=== PATIENT | female | born 1945 | race Caucasian/White ===

== ENCOUNTER → 2017-11-07 | Day surgery (SDC) | payer MEDICARE ==
[~2017-11-07] MED LIST: BUPIVACAINE/EPINEPHRINE 0.5% PF 30 ML VIAL ONE; KETOROLAC TROMETHAMINE 30 MG/ML (IVP) VIAL IV PUSH ONE; LACTATED RINGER'S 1000 ML INJ 1,000 ML ONE; LIDOCAINE 1%/EPINEPHrine 1:100,000 SOLN 30 ML VIAL ONE; MIDAZOLAM HCL 2 MG/2 ML VIAL ONE; ONDANSETRON HCL 4 MG/2 ML VIAL IV PUSH ONE; PROPOFOL 500 MG/50 ML BTL IV ONE; SODIUM CHLORIDE 0.9% INJ 10 ML ONE; ceFAZolin INJ 1,000 MG VIAL ONE
--- NOTE | 2017-11-08 11:49 | MP ---
cc: Abraham Chaudhari MD DATE OF OPERATION: 11/07/2017 DATE OF PROCEDURE: 11/07/2017. PREOPERATIVE DIAGNOSES: 1. Right breast cancer, locally advanced. 2. Need for permanent intravenous access, chemotherapy planning. POSTOPERATIVE DIAGNOSES: 1. Right breast cancer, locally advanced. 2. Need for permanent intravenous access, chemotherapy planning. PROCEDURE PERFORMED: Left subclavian Port-A-Cath placement under direct fluoroscopy. SURGEON: Abraham Chaudhari MD COMPRESSOR STATION OPERATOR: None. ANESTHESIA: MAC. IV FLUIDS: See anesthesia sheet. ESTIMATED BLOOD LOSS: 5 mL. DRAINS: None. COMPLICATIONS: None. WOUND CLASSIFICATION: Clean. INDICATIONS FOR PROCEDURE: The patient is a 71-year-old female who presents with diagnosis, biopsy-proven right breast cancer seen locally advanced with positive lymphadenopathy and advanced invasiveness. The patient needs to undergo neoadjuvant chemotherapy. Therefore, decision was for Port-A-Cath placement. DETAILS OF PROCEDURE: The patient was taken to the operating suite, placed in supine position. She was prepped and draped in the usual sterile fashion after induction of MAC anesthesia. A brief timeout was done stating the correct patient, procedure, surgical site and we were all in agreement with this. Attention was first directed to the left clavicular area. Landmarks were palpated. The sternal notch was identified. The Halsted ligament was also identified and palpated. Local anesthetic injected 1/3 the distance infraclavicular. The introducer large gauged needle was obtained and aspirated until it obtained the dark blood of the left subclavian vein. This was successful in one attempt. The wire was then introduced and advanced through the needle. The needle was removed and the wire remained in place. Fluoroscopy was used for confirmation of subclavian vein SVC placement. The local anesthetic was injected where the port pocket was to be. A 15 blade was used to do a transverse incision and further dissection with electro-Bovie cautery and finger interdigitation to make appropriate port pocket. The subcutaneous tunneler was used to tunnel the catheter through the skin. Next, the sheath dilator was used and advanced over the wire and introduced into the vein. The sheath and contents of the wire were removed. The Port-A-Cath catheter was then advanced through the dilator sheath, down the subclavian into the SVC. Again, fluoroscopy was used for confirmation of placement. The wire was then drawn back to approximately the 18 cm point. This is cut and then the Port-A-Cath along with the cuff was used and secured in place. The Port-A-Cath had been pre-flushed. The Port-A-Cath was then secured to the chest wall using 3-0 Prolene sutures. Chaparro needle was used with saline, aspirated freely. Then heparinized saline 2.5 mL was instilled. The port pocket was then closed with 3-0 Vicryl and 4-0 Monocryl subcuticular suture. Sterile dressing was then placed. Confirmation fluoroscopy was done showing appropriate location and adequate placement. A chest x-ray is pending for PACU. The patient tolerated the procedure well. There was no intraoperative complication. All lap and instrument counts were correct at the end of procedure and the patient was taken stable to PACU. FINDINGS: 1. Good flush, good return of the Port-A-Cath. 2. Pathology: No specimen sent. MD RUPESH Cosby/VALARIE , 11:21 AM , 11:48 AM
== END | disposition home or self-care (01) ==
LOC: ESDC 09:39
PROVIDERS: ATTEND Surgery
DX: C50.911 Malignant neoplasm of unspecified site of right female breast (principal)
CPT/HCPCS: 00532; 36561; 76000; 77001; C1788; J0690; J1885; J2250; J2405; J3010; J7120

== ENCOUNTER 2017-12-22 06:01 | Day surgery (SDC) | payer MEDICARE ==
[~2017-12-22] VITALS: Ht 152.4 cm; Wt 75.0 kg
[2017-12-22] MEDS ORDERED: SITA1TAB2 PO (06:57)
[2017-12-22] MEDS ORDERED: HYOS1TAB9 PO (06:57)
[2017-12-22] MEDS ORDERED: OMEP10CA PO (06:57)
[2017-12-22] MEDS ORDERED: GLIM4TAB PO (06:57)
[2017-12-22] MEDS ORDERED: LISI40TA PO (06:57)
[2017-12-22] MEDS ORDERED: METF500T PO (06:57)
[2017-12-22 07:08] VITALS: BP 148/72; PULSE 94; RESP 20; TEMP 97.8; O2SAT 98
[2017-12-22] MEDS ORDERED: SODIUM CHLORIDE 0.9% 1000 ML IV SCH (07:30)
[2017-12-22 07:54] LABS: AUTOMATED NEUTROPHIL # 12.3 TH/MM3 (1.8-7.7); BASOPHIL % 0.3 % (0.0-2.0); EOSINOPHIL % 0.2 % (0.0-4.0); HEMOGLOBIN 10.5 GM/DL (11.6-15.3); LYMPH % 8.2 % (9.0-44.0); LYMPHOCYTE # 1.2 TH/MM3 (1.0-4.8); MEAN CELL VOLUME 82.7 FL (80.0-100.0); MEAN CORPUSCULAR HEMOGLOBIN 27.2 PG (27.0-34.0); MEAN CORPUSCULAR HGB CONC 32.8 % (32.0-36.0); MONO % 6.8 % (0.0-8.0); NEUT % 84.5 % (16.0-70.0); PLATELET COUNT 234 TH/MM3 (150-450); RED BLOOD COUNT 3.87 MIL/MM3 (4.00-5.30); RED CELL DISTRIBUTION WIDTH 15.8 % (11.6-17.2); WHITE BLOOD COUNT 14.6 TH/MM3 (4.0-11.0)
[2017-12-22 08:03] LABS: INTERNATIONAL NORMALIZED RATIO 1.1 RATIO; PROTHROMBIN TIME - PATIENT 10.7 SEC (9.8-11.6)
[2017-12-22 08:39] LABS: BANDS 12 % (0-6); BASOPHILS 1 % (0-2); LYMPHOCYTES 11 % (9-44); METAMYELOCYTES 2 % (0-1); MONOCYTES 7 % (0-8); MYELOCYTES 3 % (0-0); NEUTROPHIL # MANUAL DIFF 11.8 TH/MM3 (1.8-7.7); POLYS (SEG NEUTROPHILS) 64 % (16-70)
[2017-12-22 08:40] LABS: POLYCHROMASIA 2.6 % (0.0-1.9)
[2017-12-22 08:41] LABS: TEARDROP RBCS 1+ (NORMAL); TOXIC GRANULATION 1+ (NORMAL)
[2017-12-22 09:00] VITALS: BP 135/73; PULSE 85; RESP 18; O2SAT 92
[2017-12-22] MEDS ORDERED: IOHEXOL 350 MG/ML 50 ML BTL (for RAD DIAG) IVCONTRAST ONE (09:00)
--- NOTE | 2017-12-22 09:12 | PD.RAD ---
Post Procedure Progress Note Pre Procedure Diagnosis: (1) Breast cancer (2) [id number] poorly functioning Post Procedure Diagnosis: (1) Breast cancer (2) [id number] poorly functioning Procedure Date: December 22, 2017 Supervising Radiologist: Oskar Alvarado Proceduralist/Assist: Diamante Rodriguez, RT(R)(), Kassidy Quinn RT(R) Plan of Activity Patient to Unit: [facility]OP[facility] Patient Condition: Good See PACS Report for procedural detail/treatment Imaging Evaluation Infusaport Evaluation Findings: Kink at subclavian dermatotomy. Reduced with inferior retraction of port. Aspirates and flushes with retraction Oskar Alvarado MD December 22, 2017 09:12
--- NOTE | 2017-12-22 09:57 | RADRPT ---
EXAM DATE/TIME: 12/22/2017 08:43 [facility] COMPARISON: No previous studies available for comparison. INDICATIONS : Patient with a history of breast cancer, possible non-functioning port needs evaluated. MEDICAL HISTORY : Right breast cancer Diabetes type II Gout Diverticulosis Irritable bowel syndrome SURGICAL HISTORY : Breast biopsy Colonoscopy Hysterectomy Cholecystectomy ENCOUNTER: Initial ACUITY: 2 days PAIN SCORE: 0/10 FLUORO TIME: 0.30 minutes IMAGE SERIES: 3 ACCESS SITE: Left Infusaport CONTRAST: 1.) 10 cc Omnipaque (iohexol) 350 PROCEDURE : 1. Access of [id number]. 2. Port patency injection. The risks, benefits and alternatives to the procedure were explained and verbal and written consent w as obtained. The patient was placed supine. The port was prepped in sterile fashion. Full sterile t echnique was used, including cap, mask, sterile gloves and gown, and a large sterile sheet. Hand hyg iene and 2% chlorhexidine prep was utilized per protocol for cutaneous antisepsis with appropriate dr y time for site. The previously placed port was accessed and positive contrast was injected for evaluation. Injection demonstrates the port to be intact with the tip projecting over the central venous system. However, at the subclavian dermatotomy, there is a kink in the catheter which is palpable on the skin surface. When the port is retracted inferiorly, the kink resolved and I was able to aspirate without difficul ty. CONCLUSION: Left subclavian Oenehi-u-Nkit as above. Port is intact. Oskar Alvarado MD on December 22, 2017 at 9:54 Board Certified Radiologist. This report was verified electronically.
== END 2017-12-22 09:40 | disposition home or self-care (01) ==
LOC: HROP 06:01 → HRIP 06:07 → HROP 09:40
PROVIDERS: ATTEND Internal Medicine Hematology & Oncology
DX: Z45.2 Encounter for adjustment and management of vascular access device (principal); C50.911 Malignant neoplasm of unspecified site of right female breast; E11.9 Type 2 diabetes mellitus without complications; M10.9 Gout, unspecified; K58.9 Irritable bowel syndrome, unspecified
CPT/HCPCS: 36598; 85007; 85027; 85610; 85730; J1642; Q9967

== ENCOUNTER 2018-04-25 11:22 | Observation (INO) ==
[2018-04-25] MEDS ORDERED: Bupivacaine/Epinephrine Inj 0.25% 50 ML Vial ONE (11:54)
[2018-04-25] MEDS ORDERED: Lidocaine 1%/Epinephrine 1:100,000 Inj 30 ML Vial ONE (11:55)
[2018-04-25] MEDS ORDERED: Sodium Bicarbonate 8.4% Inj 50 MEQ/50 ML Syringe ONE (11:55)
[2018-04-25] MEDS ORDERED: Bupivacaine/Epinephrine 0.5% Inj 50 ML Vial ONE (11:55)
[2018-04-25] MEDS ORDERED: Metoprolol Tartrate 25 MG Tablet PO SCH (12:04)
[2018-04-25] MEDS ORDERED: Chlorhexidine Gluconate 2% 1 Pack (2 Cloths) TOPICAL SCH (12:04)
[2018-04-25] MEDS ORDERED: ceFAZolin 2 GM Premix Inj 0 GM/0 ML PIGGYBACK IV.SIG ONE (12:08)
[2018-04-25] MEDS ORDERED: ceFAZolin 2 GM Premix Inj 2 GM/100 ML BAG IV.SIG ONE (12:41)
[2018-04-25] MEDS ORDERED: Neostigmine Inj 5 MG/5 ML Syringe IV.PUSH ONE (12:55)
[2018-04-25] MEDS ORDERED: Glycopyrrolate Inj 1 MG/5 ML Syringe IV.PUSH ONE (12:55)
[2018-04-25] MEDS ORDERED: Sodium Chlor 0.9% Inj 500 ML IV.SIG SCH (13:00)
[2018-04-25] MEDS ORDERED: ceFAZolin 2 GM/NS 100 ML IV IV.SIG SCH ×2 (13:00)
[2018-04-25] MEDS ORDERED: fentaNYL Citrate Inj 100 MCG/2 ML Ampul ONE (15:38)
[2018-04-25] MEDS ORDERED: Ketorolac Inj 30 MG/ML (IVP) Vial IV.PUSH ONE (15:44)
[2018-04-25] MEDS ORDERED: *Ondansetron Inj 4 MG/2 ML Vial PERIprocedural Use ONLY ONE (15:48)
[2018-04-25] MEDS ORDERED: Ketorolac Inj 30 MG/ML (IVP) Vial ONE (16:08)
[2018-04-25] MEDS ORDERED: *Promethazine Inj 25 MG/ML Vial PERIprocedural use ONLY ONE (16:15)
[2018-04-25] MEDS ORDERED: *Labetalol HCl Inj 100 MG/20 ML Vial PERIprocedural Use ONLY IV.PUSH ONE (16:37)
[2018-04-25] MEDS ORDERED: Post-op Orders (for Pharmacy) OTHER ONE (17:03)
[2018-04-25] MEDS ORDERED: Promethazine 25 MG Supp RECTAL PRN (17:03)
[2018-04-25] MEDS ORDERED: Bisacodyl 10 MG Supp RECTAL PRN (17:03)
[2018-04-25] MEDS ORDERED: Ketorolac Inj 30 MG/ML (IVP) Vial IV.PUSH PRN (17:03)
[2018-04-25] MEDS: Sod Chloride 0.9% Inj 1,000 ML IV.CONT SCH (18:00)
[2018-04-25] MEDS ORDERED: Morphine Sulfate Inj 2 MG/ML Vial IV.PUSH PRN (19:15)
[2018-04-25] MEDS: ceFAZolin Inj 1,000 MG in Sodium Chlor 0.9% Inj 100 ML IV.SIG SCH (21:51)
[2018-04-25] MEDS: Senna/Docusate Sodium 8.6/50 MG Tablet PO SCH (21:52)
[2018-04-26] MEDS: Sod Chloride 0.9% Inj 1,000 ML IV.CONT SCH ×2 (03:12→13:12)
[2018-04-26] MEDS: ceFAZolin Inj 1,000 MG in Sodium Chlor 0.9% Inj 100 ML IV.SIG SCH ×2 (03:12→13:09)
[2018-04-26] MEDS: Senna/Docusate Sodium 8.6/50 MG Tablet PO SCH (09:10)
[2018-04-26] MEDS ORDERED: Benzocaine/Menthol 15 MG/3.6 MG SF Lozenge BUCCAL ONE (12:00)
--- NOTE | 2018-04-26 21:53 | ECG ---
Date Performed: 04/25/2018 Time Performed: 11:57:20 PTAGE: 72 years EKG: Sinus rhythm NORMAL ECG NO PREVIOUS TRACING DOCTOR: Sameer Rodriguez Interpretating Date/Time 04/26/2018 21:51:54
== END 2018-04-26 15:39 | disposition home or self-care (01) ==
LOC: HSDC 11:22 → N07 17:08 → INTOOBSV 17:08
PROVIDERS: ADMIT Surgery; ATTEND Surgery
PROC: [UNRECOGNIZED PROCEDURE] (2018-04-25 12:55)